=== PATIENT | male | born 1955 | race Caucasian/White ===

== ENCOUNTER 2020-05-22 10:30 | Emergency (ER) | payer OTHER, SELFPAY ==
--- NOTE | ~2020-05-22 | CT_ITS ---
EXAMINATION: CT thoracic spine wo con DATE: 05/22/2020 11:04 INDICATION: Thoracic spine injury. TECHNIQUE: Computed tomography (CT) of the thoracic spine was performed without intravenous contrast. Automated exposure control and iterative reconstruction technique were employed. The dose-length pro duct was 1571.39 mGy-cm. COMPARISON: None FINDINGS: A calcified left lung nodule and calcified left hilar and mediastinal lymph nodes are consi stent with old granulomatous disease. Bone alignment is normal. There are Schmorl's nodes at most lev els. There is mildly decreased disc height at T5-T6. There are endplate osteophytes at most levels. T here is multilevel mild facet joint osteoarthritis. There is mild neural foraminal stenosis on the le ft at T10-T11. No central canal stenosis. IMPRESSION: 1. No fracture. 2. Mild thoracic spondylosis. Reviewed, dictated and finalized at location A.
--- NOTE | ~2020-05-22 | CT_ITS ---
EXAMINATION: CT brain wo con DATE: 05/22/2020 11:04 INDICATION: Syncope. TECHNIQUE: Computed tomography (CT) of the head was performed without intravenous contrast. The mA wa s adjusted according to patient size. Iterative reconstruction technique was employed. The dose-lengt h product was 605.33 mGy-cm. COMPARISON: None FINDINGS: There is no intracranial hemorrhage, acute infarction, or abnormal intracranial mass lesion . The ventricles are normal in size. There is mild mucosal thickening in the paranasal sinuses. The o rbits are normal. The mastoid air cells are normal. IMPRESSION: 1. Normal brain. Reviewed, dictated and finalized at location A. IMPRESSION: 1. Normal brain.
--- NOTE | ~2020-05-22 | CT_ITS ---
EXAMINATION: CT cervical spine wo con DATE: 05/22/2020 11:04 INDICATION: Syncope. TECHNIQUE: Computed tomography (CT) of the cervical spine was performed without intravenous contrast. Automated exposure control and iterative reconstruction technique were employed. The dose-length pro duct was 488.85 mGy-cm. COMPARISON: None FINDINGS: There is hypolordosis of cervical spine. Vertebral body heights are normal. There is severe ly decreased disc height at C6-C7. The following disc levels are specifically discussed: C2-C3: There is mild right uncovertebral joint osteoarthritis. There is mild bilateral facet joint os teoarthritis. There is no neural foraminal stenosis. There is no central canal stenosis. C3-C4: There is mild right and moderate left uncovertebral joint osteoarthritis. There is moderate ri ght and severe left facet joint osteoarthritis. There is mild bilateral neural foraminal stenosis. Th ere is mild central canal stenosis. C4-C5: There is mild bilateral uncovertebral joint osteoarthritis. There is mild bilateral facet join t osteoarthritis. There is no neural foraminal stenosis. There is no central canal stenosis. C5-C6: There is mild bilateral uncovertebral joint osteoarthritis. There is mild bilateral facet join t osteoarthritis. There is mild right neural foraminal stenosis. There is no central canal stenosis. C6-C7: There is severe bilateral uncovertebral joint osteoarthritis. There is mild right and moderate left facet joint osteoarthritis. There is mild right and moderate left neural foraminal stenosis. Th ere is mild central canal stenosis. C7-T1: There is no uncovertebral joint osteoarthritis. There is mild bilateral facet joint osteoarthr itis. There is no neural foraminal stenosis. There is no central canal stenosis. IMPRESSION: 1. No fracture. 2. Severe spondylosis at C6-C7. Mild spondylosis at other levels. Reviewed, dictated and finalized at location A.
[2020-05-22 10:33] VITALS: BP 155/82; PULSE 59; RESP 18; TEMP 36.8; O2SAT 100
--- NOTE | 2020-05-22 10:57 | ECG_ITS ---
Measurements Intervals [place] Rate: 57 P: 65 WV: 149 QRS: -6 QRSD: 114 T: 30 QT: 420 QTc: 411 Interpretive Statements SINUS BRADYCARDIA INTRAVENTRICULAR CONDUCTION DELAY BORDERLINE ECG Electronically Signed On 05-22-2020 12:44:10 CDT by Wisam Smith D.O.
[2020-05-22 10:59] LABS: Basophils Absolute Auto 0.1 K/mm3 (0.0-0.1); Basophils Percent Auto 0.5 % (0.2-1.2); Eosinophils Absolute Auto 0.1 K/mm3 (0-0.3); Eosinophils Percent Auto 0.8 % (0-4.4); Hematocrit 41.4 % (42.0-52.0); Hemoglobin 13.8 g/dL (14.0-18.0); Immature Granulocyte Absolute 0.06 K/mm3 (0.00-0.031); Immature Granulocyte Percent A 0.6 % (0-0.5); Lymphocytes Absolute Auto 2.06 K/mm3 (0.9-3.2); Lymphocytes Percent Auto 20.2 % (18.3-44.2); Mean Corpuscular HGB Conc 33.3 g/dl (32-36); Mean Corpuscular Hemoglobin 30.1 pg (26-34); Mean Corpuscular Volume 90.2 fl (80-100); Mean Platelet Volume 10.3 fl (7.4-10.4); Monocytes Absolute Auto 0.7 K/mm3 (0.1-0.6); Monocytes Percent Auto 6.7 % (2.6-8.5); Neutrophils Absolute Auto 7.3 K/mm3 (1.3-6.7); Neutrophils Percent Auto 71.2 % (45.5-73.1); Platelet Count Result 284 k/mm3 (150-375); Red Blood Count 4.59 M/mm3 (4.6-6.20); Red Cell Distribution Width 13.1 % (11.5-14.5); White Blood Count 10.2 K/mm3 (4.5-10.0)
[2020-05-22 11:05] VITALS: PULSE 58
--- NOTE | 2020-05-22 11:13 | ED.SYNCOPE ---
HPI - Syncope General Chief Complaint: Syncope Stated Complaint: fall Time Seen by Provider: 05/22/20 10:39 History of Present Illness HPI narrative: Patient is a 64-year-old male who presents ER with loss of consciousness. Reports he was out on his porch last night. He had a couple cocktails and then he fell 3 feet onto a concrete slab. He believes he got lightheaded before he went down and hit the ground. He did lose consciousness briefly. Reports he did not come in last night because he was stubborn. Opted to come in to be evaluated today due to soreness in his neck and upper back as well as abrasions to his left ear and side. He is having no dizziness at this time. No chest pain/shortness of breath/nausea/vomiting. There is no focal weakness or numbness. Related Data Home Medications Medication Instructions Recorded Confirmed aspirin [Aspir-81] 81 mg PO DAILY 05/22/20 citalopram 40 mg PO DAILY 05/22/20 lansoprazole 30 mg PO DAILY 05/22/20 lisinopril 10 mg PO DAILY 05/22/20 metoprolol succinate 25 mg PO DAILY 05/22/20 rosuvastatin 40 mg PO DAILY 05/22/20 Allergies Allergy/AdvReac Type Severity Reaction Status Date / Time formaldehyde Allergy Mild Rash Verified 05/22/20 10:39 Review of Systems Review of Systems: All systems reviewed & are unremarkable except as noted in HPI and below Constitutional: Constitutional: Denies chills, Denies fever(s) and Denies weakness ENT: Denies nasal congestion and Denies sore throat Cardiovascular: Cardiovascular: Denies chest pain, Denies rapid heart rate and Denies radiating jaw, neck or arm pain Musculoskeletal: Musculoskeletal: Reports back pain, Reports myalgias, Denies arthralgias and Denies joint swelling Neurologic: Reports syncope, Denies focal weakness and Denies numbness [facility] Past Medical History Medical History (Updated 05/22/20 @ 12:58 by Eliot Judd MD) Asthma Bipolar disorder History of coronary artery disease Hyperlipidemia Surgical History Surgical History (Updated 05/22/20 @ 12:55 by Eliot Judd MD) History of colonoscopy History of percutaneous coronary intervention Family History Family History (Updated 07/08/14 @ 07:13 by DOCTOR UNKNOWN) Mother Family history of malignant neoplasm Father Family history of heart disease in male family member before age 55 Social History Social History Alcohol intake: current Gender identity (if verbalized by the patient): Male Exam Narrative: Exam Narrative: GENERAL: Well-appearing, well-nourished, and in no acute distress. HEAD: Normocephalic, atraumatic. ENT: Mucous membranes moist. Abrasions to the left jewish and upper ear. No lacerations. NECK: Supple. Mild tenderness to the C6 region of the neck midline. Mild paraspinal tenderness in the lower neck. CHEST: Clear to auscultation. No respiratory distress. HEART: Regular rate and rhythm. Normal peripheral pulses. EXTREMITIES: Normal range of motion. No edema. Back: Mild tenderness of the T2 region of the throat sick spine with mild bilateral paraspinal muscular tenderness. SKIN: Warm, dry, no rash. Abrasions left lateral abdominal wall. NEURO: Alert and oriented x3. Course Course Emergency Course: Informed of results. Discharge home. Vital Signs Vital signs: Vital Signs Temperature 98.2 F 05/22/20 10:33 Pulse Rate 59 L 05/22/20 10:33 Respiratory Rate 18 05/22/20 10:33 Blood Pressure 155/82 H 05/22/20 10:33 Pulse Oximetry 100 05/22/20 10:33 Temperature 98.2 F 05/22/20 10:33 Pulse Rate 61 05/22/20 11:18 Respiratory Rate 18 05/22/20 10:33 Blood Pressure 152/89 H 05/22/20 11:18 Pulse Oximetry 100 05/22/20 10:33 MDM - Syncope Lab Data Result diagrams: 05/22/20 10:49 05/22/20 11:34 Labs: Lab Results 05/22/20 05/22/20 Range/Units 10:49 11:34 WBC 10.2 H (4.5-10.0) K/mm3 RBC 4.59 L (4.6-6.20) M/mm3 Hgb 13.8 L (14.0-18
[2020-05-22 11:18] VITALS: BP 146/86; BP 152/89; PULSE 56; PULSE 59; PULSE 61
[2020-05-22 11:50] LABS: Blood Urea Nitrogen 14 mg/dL (9-20); Calcium 8.8 mg/dL (8.4-10.2); Carbon Dioxide 25 mmol/L (22-30); Chloride 102 mmol/L (98-107); Estimated CRCL calculation 112 ml/min; Estimated Glomerular Filt Rate > 60; Glucose 84 mg/dL (75-110); Potassium 4.8 mmol/L (3.4-5.0); Sodium 136 mmol/L (137-145)
[2020-05-22 13:24] VITALS: BP 178/90; PULSE 60; RESP 14; O2SAT 100
== END 2020-05-22 13:27 | disposition home or self-care (01) ==
PROVIDERS: Emergency Provider Emergency Medicine; PCP Family Medicine Adolescent Medicine
DX: S19.9XXA Unspecified injury of neck, initial encounter (principal); S29.9XXA Unspecified injury of thorax, initial encounter; S00.412A Abrasion of left ear, initial encounter; S30.811A Abrasion of abdominal wall, initial encounter; R00.1 Bradycardia, unspecified; I45.9 Conduction disorder, unspecified; W17.89XA Other fall from one level to another, initial encounter
CPT/HCPCS: 36415; 70450; 72125; 72128; 80048; 85025; 93005; 99284

== ENCOUNTER 2021-10-12 08:30 | Outpatient (RCR) | payer OTHER, SELFPAY ==
--- NOTE | 2021-08-16 16:07 | PTOPEVAL ---
Thank you for referring Horace Levi to [facility].? The patient is scheduled to be seen for therapy? 2 x/week for8 weeks. Please review, sign, date and return this plan of care DULCE MARIA. I agree with and certify that the following plan of care is medically necessary. Referring Physician Date Attending Provider: Dr. Merlin Rodriguez MD Diagnosis left medial/lateral meniscus tear Onset 07/01 Additional Evaluation Detail left knee arthroscopic surgery with partial medial/lateral meniscecomty 08/14/21 Subjective Information He has been having issues with Query Text:As Reported By Patient/ his left knee which Family progressed over time. 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 He is required to climb 30 ft towers, squating, stairs, carrying heavy objects up the steps, and crawling under equipment. He does not perform cardio/ fitness program. He has been using a cane since surgery. He reports limitations with steps, walking, prolonged standing, squating, carrying task, ADL's, and increased activities. Pain Assessment Left Knee(s) Reported Pain Level 4 Pain Description Sharp,Tender on Palpation Pain Frequency Acute,Continuous Lowest Pain Intensity 1 Greatest Pain Intensity 7 Pain Aggravating Factors ADL's,Bending,Exercise/ Activity,Lifting,Procedure or Surgery,Stair Climbing,Walking ,Weight Bearing/Standing Lower Extremity Range of Motion Knee Range of Motion Left Knee Flexion Range of Motion - Active 90 Knee Extension Range of Motion - Passive -14 Knee Range of Motion Limitations Edema,Pain Lower Extremity Muscle Strength Testing Hip Strength Left Hip Flexion Strength 3+ Fair + Hip Extension Strength 4- Good - Hip Abduction Strength 3+ Fair + Knee Strength Left Knee Flexion Strength 3 Fair Knee Extension Strength 3 Fair Ankle Strength Left Ankle Dorsiflexion Strength 5 Normal Posture Posture Standing Position Weight Distribution Weight Shifted Right Knee Posture (L) Excess Flexion Palpation Assessment Palpation moderate tenderness of medial
--- NOTE | 2021-09-01 13:28 | PCPTNOTE ---
Patient called & cancelled scheduled appointment this date due to increased knee pain.
--- NOTE | 2021-09-20 09:54 | PTOPEVAL ---
Physical Therapy Progress Note Thank you for referring Horace Levi to [facility].?Horace has attended 10 therapy visits with improved left leg impairments. See summary below for objective measures and progress.. The patient is scheduled to be seen for therapy? 2 x/week for 3 weeks. Please review, sign, date and return this plan of care DULCE MARIA. I agree with and certify that the following plan of care is medically necessary. Referring Physician Date Referring Provider: Dr. Merlin Rodriguez Diagnosis left medial/lateral meniscus tear Onset 07/01 Additional Evaluation Detail left knee arthroscopic surgery with partial medial/lateral meniscecomty 08/14/21. 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 Subjective Information He has been having increased Query Text:As Reported By Patient/ knee pain and feeling Family something is torn on his knee. His thighs were sore after adding the squats and lunges He reports limitations with steps, distance walking, squating, ADL's for left leg, prolonged sitting with knee flexed and increased activities. States he is applying ice and heat for pain and swelling at home. Pain Assessment Left Knee(s) Reported Pain Level 2 Pain Description Aching,Sharp,Tender on Palpation Pain Frequency Acute,Continuous Lowest Pain Intensity 1 Greatest Pain Intensity 5 Pain Aggravating Factors ADL's,Bending,Exercise/ Activity,Lifting,Procedure or Surgery,Stair Climbing,Walking ,Weight Bearing/Standing Lower Extremity Range of Motion Knee Range of Motion Left Knee Flexion Range of Motion - Active 116 Knee Extension Range of Motion - Passive -5 Knee Range of Motion Limitations Edema,Pain Lower Extremity Muscle Strength Testing Hip Strength Left Hip Flexion Strength 5 Normal Hip Extension Strength 5 Normal Hip Abduction Strength 3+ Fair + Knee Strength Left Knee Flexion Strength 5 Normal Knee Extension Strength 4+ Good + Palpation Assessment Palpation moderate tenderness of medial aspect of left knee joint line and pes ansurenes Special Tests-Lower Extremity Hip Special Tests Trendelenburg Sign
--- NOTE | 2021-10-12 09:23 | PTOPEVAL ---
Physical Therapy Discharge Summary Thank you for referring Horace Levi to [facility].? Horace has attended 16 therapy visits to address his knee impairments. He demonstrates normal knee range and strength, no limitations with normal daily task. He is indep with his final HEP at this time. He has achieved his therapy goals. Will DC skilled therapy services at this time. Please review, sign, date and return this plan of care DULCE MARIA. I agree with and certify that the following plan of care is medically necessary. Referring Physician Date Referring Provider: Dr. Merlin Rodriguez Diagnosis left medial/lateral meniscus tear Onset 07/01 Additional Evaluation Detail left knee arthroscopic surgery with partial medial/lateral meniscecomty 08/14/21. 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 Subjective Information He cont to have increased knee Query Text:As Reported By Patient/ pain with prolonged standing Family or sitting with knee flex, increased activities. He reports improved ability to perform steps and distance walking. Cont limitation with squating motion. When he is kneeling he will kneel only on the right LE> Pain Assessment Self Report Pain Assessment Left Knee(s) Reported Pain Level 1 Pain Description Aching,Sharp Pain Frequency Chronic,Continuous Lowest Pain Intensity 1 Greatest Pain Intensity 4 Pain Aggravating Factors Exercise/Activity,Prolonged Position,Sitting Lower Extremity Range of Motion Knee Range of Motion Left Knee Flexion Range of Motion - Active 125 Knee Extension Range of Motion - active 0 Knee Range of Motion Limitations Pain Lower Extremity Muscle Strength Testing Hip Strength Left Hip Flexion Strength 5 Normal Hip Extension Strength 5 Normal Hip Abduction Strength 4- Good - Knee Strength Left Knee Flexion Strength 5 Normal Knee Extension Strength 5 Normal Palpation Assessment Palpation moderate tenderness of medial aspect of left knee joint line and pes ansurenes, medial hamstring muscle and attachment Transfer Assessment Floor Transfer Assessment Ambulation Assistive Devices None Floor Transfer Destination Standing Stand to Floor Transfer Ability Independent Floor to Stand Transfer Ability Independent Floor Transfer Ability Independen
== END 2021-10-13 11:16 | disposition home or self-care (01) ==
LOC: ANHPT 08:30
PROVIDERS: PCP Family Medicine Adolescent Medicine
DX: Z48.89 Encounter for other specified surgical aftercare (principal)
CPT/HCPCS: 97014; 97035; 97110; 97112; 97140; 97162; 97530; G0283

== ENCOUNTER → 2021-10-30 10:06 | Outpatient (CLI) | payer OTHER, SELFPAY ==
[2021-11-01 19:31] LABS: SARS-CoV-2 RNA PCR Positive
== END ==
PROVIDERS: PCP Family Medicine Adolescent Medicine; Visit Provider Nurse Practitioner Adult Health
DX: U07.1 COVID-19 (principal)
CPT/HCPCS: C9803; U0003; U0005

== ENCOUNTER → 2022-11-13 14:08 | Outpatient (CLI) | payer MEDICARE, SELFPAY ==
--- NOTE | ~2022-11-13 | XR_ITS ---
EXAM: [id number] DATE: 11/13/2022 14:28 HISTORY: M54.2 - Cervicalgia . COMPARISON: None available. FINDINGS: Craniocervical association and atlantoaxial joint are aligned. No prevertebral soft tissue swelling. Vertebral bodies are aligned. Vertebral body heights are maintained. Multilevel marginal o steophytosis. Multilevel facet hypertrophy. IMPRESSION: Mild multilevel degenerative disc disease and facet arthropathy. Reviewed, dictated and finalized at location K. 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
== END ==
PROVIDERS: PCP Family Medicine Adolescent Medicine; Visit Provider Family Medicine Adolescent Medicine
DX: M50.30 Other cervical disc degeneration, unspecified cervical region (principal)
CPT/HCPCS: 72040

== ENCOUNTER 2023-01-03 10:15 | Outpatient (RCR) | payer MEDICARE, SELFPAY ==
--- NOTE | 2022-12-04 12:51 | PTOPEVAL1 ---
Assessment and note entered by Edilberto Graves, PT Evaluation Information Assessment Status Evaluation Diagnosis Posterior neck pain Onset April 2022 Subjective Information Escobar reports that he has had neck pain since April of last year after a fall. He tried to take care of it on his own for 6 months then decided to see his doctor. He was given a medication recently that is really helping with the pain. He reports no radiating symptoms, but he has had headaches, trouble sleeping and increased pain when he stays in a prolonged position. Reported Pain Level Pain Score 2: Self Report Additional Pain Score Comments worst pain is 6/10. worst in the AM. Assessment PT Clinical Summary Escobar is a 67 year old male coming into the clinic for posterior neck pain. The patient has decreased cervical range of motion and tightness in the L upper traps and suboccipitals. The patient should benefit from skilled physical therapy to work on stretching the upper trap and suboccipitals along with education and work on posture to improve cervical range of motion. Plan of Care Interventions Electrical Stimulation,Gait Training,Hot Pack/Cold Pack,Manual Therapy,Mechanical Traction,Neuro Re- education,Patient/Caregiver Education,Therapeutic Activities,Therapeutic Exercise Other Interventions taping PT Services Indicated Yes Treatment Frequency and 1x/wk for 4 weeks Duration These treatments will address the objective and functional deficits as defined above. The patient will be advanced safely and appropriately in order for the patient to progress towards his/her prior level of function. Additional exercises will be introduced and as well as a comprehensive home exercise program upon discharge, if needed, ?to ensure carryover of functional gains achieved in the clinic. This treatment plan has been reviewed and agreement upon by the patient.
--- NOTE | 2023-01-03 10:32 | PTOPDC ---
Assessment and note entered by Edilberto Graves, PT Evaluation Information Assessment Status Discharge Diagnosis posterior neck pain Onset April 2022 Subjective Information Patient reports that he has been having improved mobility in his neck and no significant pain to speak of. He does still have some tightness, but the HEP is really effective on loosening the neck up. Reported Pain Level Pain Score 0: Self Report Assessment PT Clinical Summary Escobar is a 67 year old male coming into the clinic with a diagnosis of posterior neck pain. He reports no issues at this time besides occasional stiffness that loosens up after he does his HEP. He has met his strength and range of motion, and pain goals. Discharged from skilled physical therapy at this time. Plan of Care PT Services Indicated No Treatment Frequency and Discharged from skilled physical therapist. Duration
== END 2023-01-03 11:46 | disposition home or self-care (01) ==
LOC: ANHPT 10:15
PROVIDERS: PCP Family Medicine Adolescent Medicine; Visit Provider Family Medicine Adolescent Medicine
DX: M54.2 Cervicalgia (principal)
CPT/HCPCS: 97110; 97140; 97161; 97530

== ENCOUNTER 2024-09-11 03:02 | Day surgery (SDC) | payer MEDICARE, SELFPAY ==
[2024-09-01 12:19] VITALS: BMI 31.4
[2024-09-11 09:37] VITALS: BP 146/78; PULSE 58; RESP 18; TEMP 35.9; O2SAT 100; BMI 31.5
[2024-09-11] MEDS: LACTATED RINGERS 1,000 ML 150 ML IV CONT (09:40)
--- NOTE | 2024-09-11 10:14 | P.PNAN_ITS ---
Anes - Initial Pre Proc Eval Procedure: Operation Date: 09/11/24 10:30 Proposed Procedures p Screening Colonoscopy - Jagdish Feliz MD Date/Time: 09/11/24 10:14 Surgeon: Jagdish Feliz MD Pre Op Diagnosis: Neoplasm screening Patient Data Age: 69 Gender: M Height: 1.88 m Weight: 111.4 kg Last Vital Signs Temp 35.9 C L 09/11/24 09:37 Pulse 58 L 09/11/24 09:37 Resp 18 09/11/24 09:37 BP 146/78 H 09/11/24 09:37 Pulse Ox 100 09/11/24 09:37 O2 Del Method Room Air 09/11/24 09:37 Allergies Allergy/AdvReac Type Severity Reaction Status Date / Time formaldehyde Allergy Mild Rash Verified 09/11/24 09:35 Home Medications Medication Instructions Recorded Confirmed Type aspirin 81 mg tablet,delayed 81 mg PO DAILY 05/22/20 09/11/24 History release (Aspir-) metoprolol succinate 25 mg 25 mg PO DAILY 05/22/20 09/11/24 History tablet,extended release 24 hr rosuvastatin 40 mg tablet 40 mg PO DAILY 05/22/20 09/11/24 History needle (disp) 18 G 18 gauge x 1 #100 ea 08/14/23 09/01/24 Rx 1/2 (Hypodermic Arthur) syringe with needle 3 mL 23 x 1 #4 ea 10/23/23 09/01/24 Rx (BD Luer-Yanelis Syringe) amlodipine 5 mg-benazepril 20 mg 1 cap PO DAILY 04/09/24 09/11/24 History capsule escitalopram oxalate 20 mg tablet 20 mg PO DAILY #90 tabs 04/09/24 09/11/24 Rx lansoprazole 30 mg capsule,delayed 30 mg PO DAILY #90 caps 07/26/24 09/11/24 Rx release diclofenac sodium 75 mg 75 mg PO BID PRN Pain 09/01/24 09/11/24 History tablet,delayed release tadalafil 20 mg tablet (Cialis) 20 mg PO DAILY PRN sexual activity 09/01/24 09/11/24 History testosterone cypionate 200 mg/mL 200 mg IM .EVERY 3 WEEKS 09/01/24 09/11/24 History intramuscular oil Patient hx anesthesia problems: none Family hx anesthesia problems: none Results Review: All pre-operative results and documents have been reviewed as part of the pre- operative evaluation. PENDING SALE TO [facility] Past Medical History Medical History Asthma Bipolar disorder Contracture of palmar fascia (Dupuytren's) right hand History of coronary artery disease Hyperlipidemia Surgical History Surgical History History of ankle surgery 2016 ORIF left ankle fx History of percutaneous coronary intervention Family History Family History Mother Hodgkins disease Brain cancer Father Acute myocardial infarction Heart disease Hypertension Sibling Asthma Depression Sibling Depression Social History Social History Smoking packs per day: 1 Smoking cigarettes per day: 20.0 Smoking status: Former smoker Tobacco type: cigarettes Smokeless tobacco user: chewing tobacco Second hand tobacco smoke exposure: Yes Additional smoking assessment comments: quit chewing tobacco 04/2024 Alcohol intake: current Drinks per week: 12 Substance use: current Substance use type: marijuana Living arrangements: with family Occupation/Education: retired Gender identity (if verbalized by the patient): Male Sexual Orientation (if Verbalized by the Patient): Straight or Heterosexual Spiritual care concerns: No Agree to blood products: Yes Anes - Eval Final PreProcedure Day of Procedure 09/11/24 10:14 Patient weight: normal and overweight Heart: regular rate and rhythm Lungs: clear to auscultation Airway: Mallampati scale class II Neurological: alert and oriented Last oral intake: >/= 8 hours ASA classification: III Emergent: no Anesthetic plan: proceed Anesthesia type and monitoring: general GIVS and standard monitoring Results Review: All pre-operative results and documents have been reviewed as part of the pre- operative evaluation. Informed Consent: The patient's anesthetic plan and its attendant risks and benefits were discussed with the patient/family/POA. Questions were solicited and answers provided to the satisfaction of the patient/family/POA.
--- NOTE | 2024-09-11 10:23 | P.HP_ITS ---
History of Present Illness History of Present Illness Consent: Risks, benefits, and alternatives have been discussed and questions answered. Patient agrees to proceed with procedure. Chief complaint: Neoplasm screening Narrative: Horace Levi is a 69 year old male here for screening colonoscopy, last one 10 years ago Review of Systems Review of Systems: All systems reviewed & are unremarkable except as noted in HPI and below PMFSH Past Medical History Medical History (Updated 09/11/24 @ 10:27 by Jagdish Feliz MD) Asthma Bipolar disorder Colon cancer screening Contracture of palmar fascia (Dupuytren's) right hand History of coronary artery disease Hyperlipidemia Surgical History Surgical History History of ankle surgery 2016 ORIF left ankle fx History of percutaneous coronary intervention Family History Family History Mother Hodgkins disease Brain cancer Father Acute myocardial infarction Heart disease Hypertension Sibling Asthma Depression Sibling Depression Social History Social History Smoking packs per day: 1 Smoking cigarettes per day: 20.0 Smoking status: Former smoker Tobacco type: cigarettes Smokeless tobacco user: chewing tobacco Second hand tobacco smoke exposure: Yes Additional smoking assessment comments: quit chewing tobacco 04/2024 Alcohol intake: current Drinks per week: 12 Substance use: current Substance use type: marijuana Living arrangements: with family Occupation/Education: retired Gender identity (if verbalized by the patient): Male Sexual Orientation (if Verbalized by the Patient): Straight or Heterosexual Spiritual care concerns: No Agree to blood products: Yes Meds Home Medications and Allergies Home Medications Medication Instructions Recorded Confirmed Type aspirin 81 mg tablet,delayed 81 mg PO DAILY 05/22/20 09/11/24 History release (Aspir-) metoprolol succinate 25 mg 25 mg PO DAILY 05/22/20 09/11/24 History tablet,extended release 24 hr rosuvastatin 40 mg tablet 40 mg PO DAILY 05/22/20 09/11/24 History needle (disp) 18 G 18 gauge x 1 #100 ea 08/14/23 09/01/24 Rx 1/2 (Hypodermic [place]) syringe with needle 3 mL 23 x 1 #4 ea 10/23/23 09/01/24 Rx (BD Luer-Yanelis Syringe) amlodipine 5 mg-benazepril 20 mg 1 cap PO DAILY 04/09/24 09/11/24 History capsule escitalopram oxalate 20 mg tablet 20 mg PO DAILY #90 tabs 04/09/24 09/11/24 Rx lansoprazole 30 mg capsule,delayed 30 mg PO DAILY #90 caps 07/26/24 09/11/24 Rx release diclofenac sodium 75 mg 75 mg PO BID PRN Pain 09/01/24 09/11/24 History tablet,delayed release tadalafil 20 mg tablet (Cialis) 20 mg PO DAILY PRN sexual activity 09/01/24 09/11/24 History testosterone cypionate 200 mg/mL 200 mg IM .EVERY 3 WEEKS 09/01/24 09/11/24 History intramuscular oil Allergies Allergy/AdvReac Type Severity Reaction Status Date / Time formaldehyde Allergy Mild Rash Verified 09/11/24 09:35 Vital Signs Vital Signs - 24 hr 09/11/24 09:37 Temperature 96.6 F L Pulse Rate 58 L Respiratory Rate 18 Blood Pressure 146/78 H Pulse Oximetry 100 Oxygen Delivery Room Air Exam Const: General: comfortable and no acute distress HENMT: Face/Nose/Sinus: Normal nares present Eyes: General: appearance normal, both eyes and all related structures Neck: Neck: no JVD Resp: Auscultation: clear to auscultation bilaterally Cardio: Rate: regular rate Rhythm: regular rhythm GI: Inspection: non-distended GI Palp: Yes Soft to palpation Skin: General skin exam: normal color Neuro: General: gait normal Speech: normal speech Extrem: General: normal to inspection Psych: Mental Status: mental status grossly normal Assessment and Plan Assessment and plan (1) Colon cancer screening: Code(s): Z12.11 - Encounter for screening for malignant neoplasm of colon Status: Acute Assessment and Plan: colonoscopy
[2024-09-11 10:41] VITALS: BP 104/56; PULSE 53; RESP 17; O2SAT 97
[2024-09-11 10:51] VITALS: BP 119/71; PULSE 52; RESP 18; O2SAT 99
[2024-09-11 11:01] VITALS: BP 136/71; PULSE 53; RESP 18; O2SAT 99
== END 2024-09-11 11:13 | disposition home or self-care (01) ==
PROVIDERS: PCP Family Medicine Adolescent Medicine; Referring Provider Family Medicine Adolescent Medicine; Visit Provider Internal Medicine Gastroenterology
PROC: 0DJD8ZZ Inspection of Lower Intestinal Tract, Via Natural or Artificial Opening Endoscopic (ICD-10-PCS; CPT 45378; principal; 2024-09-11 10:30)
DX: Z12.11 Encounter for screening for malignant neoplasm of colon (principal); D12.0 Benign neoplasm of cecum; K64.8 Other hemorrhoids; K57.30 Diverticulosis of large intestine without perforation or abscess without bleeding; J45.909 Unspecified asthma, uncomplicated; F31.9 Bipolar disorder, unspecified; E78.5 Hyperlipidemia, unspecified; Z79.82 Long term (current) use of aspirin; Z98.890 Other specified postprocedural states; Z87.891 Personal history of nicotine dependence; Z86.79 Personal history of other diseases of the circulatory system; Z80.7 Family history of other malignant neoplasms of lymphoid, hematopoietic and related tissues; Z80.8 Family history of malignant neoplasm of other organs or systems; Z82.49 Family history of ischemic heart disease and other diseases of the circulatory system
CPT/HCPCS: 45385; 88305; J2003; J2704; J7120

== ENCOUNTER 2024-10-29 12:02 | Outpatient (CLI) | payer MEDICARE, SELFPAY ==
--- NOTE | ~2024-10-29 | XR_ITS ---
Left ankle Technique: AP, oblique, and lateral views were obtained. Clinical History: Pain COMPARISON: 12/10/2019 Findings: No acute fracture or dislocation is seen. Stable ORIF changes of the distal fibula. Osseous alignment is anatomic. Ankle mortise and other visualized joint spaces are preserved. Soft tissues are otherwise unremarkable. Impression: No acute abnormality. Status post remote ORIF of the distal fibula. Reviewed, dictated and finalized at location M. R OPERATOR Impression: No acute abnormality. Status post remote ORIF of the distal fibula.
== END 2024-10-29 12:03 | disposition home or self-care (01) ==
LOC: MICIMG 12:03
PROVIDERS: PCP Family Medicine Adolescent Medicine; Visit Provider Orthopaedic Surgery
DX: M25.572 Pain in left ankle and joints of left foot (principal); Z47.89 Encounter for other orthopedic aftercare
CPT/HCPCS: 73610